=== PATIENT | female | born 1990 | race Caucasian/White ===

== ENCOUNTER 2020-11-11 10:49 | Outpatient (CLI) | payer BC, SELFPAY ==
[2020-11-11 11:05] VITALS: BP 144/94; PULSE 68; RESP 16; TEMP 36.9; O2SAT 98; BMI 43.5
[2020-11-11 12:00] VITALS: BP 130/78; PULSE 70; RESP 17; TEMP 36.6; O2SAT 98
[2020-11-11 13:00] VITALS: BP 119/87; PULSE 72; RESP 18; TEMP 36.2; O2SAT 97
[2020-11-11 13:01] VITALS: BP 119/87; PULSE 72; RESP 18; TEMP 36.2; O2SAT 97
--- NOTE | 2020-11-18 18:40 | PC.SOCIAL ---
65-3, 5894 antibody infusion follow up call: symptoms prior to infusion: exhaustion, chills, joint pain, loss of smell and taste Patient reports she is 100% better, still has slight nasal congestion and cough.
== END 2020-11-11 10:50 | disposition home or self-care (01) ==
LOC: OPS 10:55
PROVIDERS: PCP Family Medicine; Visit Provider Nurse Practitioner Family
DX: U07.1 COVID-19 (principal)
CPT/HCPCS: 96365

== ENCOUNTER → 2021-01-01 15:44 | Outpatient (BNVA) | payer BC, SELFPAY | PROVIDERS: PCP Family Medicine; Visit Provider Internal Medicine | DX: B18.2 Chronic viral hepatitis C (principal) | CPT/HCPCS: 80053; 82105; 87902 ==

== ENCOUNTER 2021-04-25 14:24 | Outpatient (CLI) | payer BC, SELFPAY ==
--- NOTE | 2021-04-25 14:33 | MR_ITS ---
WS: [id number] INDICATION: Viral hepatitis TECHNIQUE: MRI of the abdomen without and with gadolinium enhancement. Coronal single shot SSFP. Axia l single shot SSF, Axial T2, dual Echo, coronal 3-D T1, and post gadolinium images were obtained. FINDINGS: Mild diffuse fatty infiltration of the liver. Mild hepatomegaly with enlargement of the RIG HT hepatic lobe measuring 18.9 cm craniocaudal. No intrahepatic biliary ductal dilatation. Normal por nidia vein and splenic vein. Mild splenomegaly measuring 13.0 cm [id number]. Normal GE junction. No abdominal lymphadenopathy. No periaortic lymphadenopathy. No hepatic lesions. Normal gallbladder. Normal pancreatic head. Normal common bile duct. Normal pancreatic duct. Adrenal glands are normal. No hydronephrosis in either kidney. Normal renal parenchymal enhancement. Normal caliber abdominal aorta. MR/MR abdomen wo/w con* [id number] IMPRESSION: 1. Mild hepatomegaly with diffuse fatty infiltration. 2. No intrahepatic biliary ductal dilatation. 3. Mild splenomegaly measuring 13.0 cm [id number]-[id number]. 4. No suspicious hepatic lesions. 5. Pancreas is normal in appearance. 6. No other significant findings.
[2021-04-25] MEDS: gadobenate dimeglumine 20 mL vial IV (15:44)
== END 2021-04-25 14:25 | disposition home or self-care (01) ==
LOC: RAD 14:26
PROVIDERS: PCP Family Medicine; Visit Provider Internal Medicine
DX: B19.20 Unspecified viral hepatitis C without hepatic coma (principal); R77.2 Abnormality of alphafetoprotein; R16.2 Hepatomegaly with splenomegaly, not elsewhere classified; K76.0 Fatty (change of) liver, not elsewhere classified
CPT/HCPCS: 74183

== ENCOUNTER → 2021-12-15 11:15 | Outpatient (BNVA) | payer BC, SELFPAY | PROVIDERS: PCP Family Medicine; Visit Provider Internal Medicine | DX: B19.20 Unspecified viral hepatitis C without hepatic coma (principal) | CPT/HCPCS: 87522 ==

== ENCOUNTER → 2022-12-30 15:32 | Outpatient (BNVA) | payer BC, SELFPAY | PROVIDERS: PCP Family Medicine; Visit Provider Clinical Nurse Specialist Adult Health | DX: J06.9 Acute upper respiratory infection, unspecified (principal) | CPT/HCPCS: 87426 ==

== ENCOUNTER → 2023-08-22 16:28 | Outpatient (BNVA) | payer BC, SELFPAY | PROVIDERS: PCP Family Medicine; Visit Provider Family Medicine | DX: M54.50 Low back pain, unspecified (principal) | CPT/HCPCS: 81000 ==

== ENCOUNTER → 2023-08-24 16:11 | Outpatient (BNVA) | payer BC, SELFPAY | PROVIDERS: PCP Family Medicine; Visit Provider Family Medicine | DX: N39.0 Urinary tract infection, site not specified (principal) | CPT/HCPCS: 87086 ==

== ENCOUNTER → 2024-05-09 08:44 | Outpatient (BNVA) | payer BC, SELFPAY | PROVIDERS: PCP Family Medicine; Visit Provider Nurse Practitioner Women's Health | DX: Z32.01 Encounter for pregnancy test, result positive (principal); N91.2 Amenorrhea, unspecified | CPT/HCPCS: 81025; 84702; 86850; 86900 ==

== ENCOUNTER → 2024-05-10 14:18 | Outpatient (BNVA) | payer BC, SELFPAY | PROVIDERS: PCP Family Medicine; Visit Provider Nurse Practitioner Women's Health | DX: Z36.87 Encounter for antenatal screening for uncertain dates (principal); O26.851 Spotting complicating pregnancy, first trimester | CPT/HCPCS: 76817 ==

== ENCOUNTER 2024-05-12 09:24 | Emergency (ER) | payer BC, SELFPAY ==
[2024-05-12 09:49] VITALS: BP 120/85; PULSE 76; RESP 18; TEMP 36.8; O2SAT 98; BMI 33.9
[2024-05-12 10:09] LABS: Basophils # 0.1 10^3/uL (0.0-0.1); Basophils % 0.6 %; Eosinophils # 0.2 10^3/uL (0.0-0.8); Eosinophils % 2.6 %; Hematocrit 45.8 % (36-47); Lymphocytes # 2.4 10^3/uL (0.8-4.8); Lymphocytes % 27.6 %; Mean Corpuscular HGB Conc 33.4 g/dL (30-55); Mean Corpuscular Hemoglobin 30.7 pg (27-33); Mean Platelet Volume 10.3 fL (7.4-10.4); Monocytes # 0.4 10^3/uL (0.2-0.9); Monocytes % 4.1 %; Neutrophils # 5.69 10^3/uL (1.8-7.7); Neutrophils % 64.8 %; Nucleated Red Blood Cells % 0 %; Platelet Count 244 10^3/cmm (157-399); Red Blood Count 4.98 10^6/uL (3.85-5.65); Red Cell Distribution Width 12.1 % (12.1-15.1); White Blood Count 8.79 10^3/uL (3.29-11.43)
--- NOTE | 2024-05-12 12:40 | W.ED.FEMALGU ---
HPI - Female Genitourinary General: Chief complaint: Vaginal Bleeding Stated complaint: bleeding (6wks preg) Time Seen by Provider: 05/12/24 09:33 Source: patient Mode of arrival: ambulatory Limitations: no limitations History of Present Illness: Patient is a 33-year-old female here approximately 6 to 7 weeks for concerns of vaginal bleeding. Patient was seen at [facility] just a few days ago for confirmation. She did have a dating ultrasound as well. Results of this ultrasound are listed below: Single intrauterine gestation with estimated age of 6 weeks 5 days. No pole identified, likely due to early gestation She states at that time she was having some light pink spotting but yesterday evening she began having heavy bright red bleeding with clot passage as well as significant cramping. She states at time of arrival to the emergency department her bleeding and pain has improved. She states she has had the same pad on for 3 to 4 hours and still has not soaked through it. She feels like her cramping has improved. MD elicited complaint: vaginal bleeding Onset (ago): hour(s) Consistency: improved Vaginal discharge: none Vaginal bleeding: moderate, bright red and clots Exacerbating factors: none Relieving factors: none Associated symptoms: Reports no associated symptoms; Deny abdominal pain Treatment prior to arrival: none Patient : Yes Date of Last Menstrual Period: 02/28/24 Related Data Previous Rx's ?Medication ?Instructions ?Recorded albuterol sulfate 2.5 mg/3 mL 2.5 mg (3 mL) inhalation Q6H #90 mL 12/30/22 (0.083 %) solution for nebulization albuterol sulfate 90 mcg/actuation See Rx Instructions .Route 12/07/23 aerosol inhaler .COMPLEX #8.5 grams Allergies Allergy/AdvReac Type Severity Reaction Status Date / Time No Known Allergies Allergy Verified 05/12/24 09:56 Review of Systems Card: Denies: chest pain Resp: Denies: dyspnea GI: Denies: abdominal pain, vomiting or diarrhea : Reports: vaginal bleeding and pelvic pain; Denies: flank pain, difficulty voiding, dysuria, urinary frequency, urinary urgency or urinary hesitancy Musc: Denies: back pain Neuro: Denies: dizziness PFSH ED PFSH: Medical History Hepatitis C Distant IVDU. Cirrhosis is unlikely Family History Grandmother Cancer Mother Hypertension Grandfather Breast cancer Social History Smoking and tobacco/nicotine status: current every day tobacco/nicotine user (1/2 ppd daily) cigarettes Marital status: Single Number of children: 1 service: No Female Reproductive History: Date of last menstrual period: 02/28/24 Physical Exam Const: COMMON NORMALS: no acute distress, average body habitus, no limitations, healthy appearing, alert and well nourished GI: INSPECTION: Yes normal to inspection PALPATION: Yes Tenderness to palpation present (GI) (mild lower abdominal/pelvic discomfort), No Guarding due to palpation present (GI) and No Rigid due to palpation : COMMON NORMALS: Yes no CVA tenderness BLADDER/KIDNEY EXAM: Yes no CVA tenderness OTHER: deferred Back/Pelvis: COMMON NORMALS: no CVA tenderness Neuro: SENSORIUM/ORIENTATION: Yes alert Course Vital Signs: Vital signs: Vital Signs Temperature 98.3 F 05/12/24 09:49 Pulse Rate 76 05/12/24 09:49 Respiratory Rate 18 05/12/24 09:49 Blood Pressure 120/85 05/12/24 09:49 Pulse Oximetry 98 05/12/24 09:49 Oxygen Delivery Me thod Room Air 05/12/24 09:49 MDM - Female Medical Decision Making Patient's hCG on 05/09 was 2140. Today's hCG is 360. Given symptoms and her rapid hCG decline, this is consistent with a miscarriage. Bleeding and cramping are improving. Did discuss how this may wax and wane over the next few days/weeks. Recommend she follow-up with women's health next week. Did discuss signs and symptoms that should prompt her to return to the emergency department. Blood type is O+/does not require RhoGAM. I did not see any indication to repeat an ultrasound at this time. Medical Records I reviewed the patient's medical records. Lab Data I reviewed the patient's lab results. 05/12/24 10:02 Laboratory Results WBC 8.79 10^3/uL (3.29-11.43) 05/12/24 10:02 RBC 4.98 10^6/uL (3.85-5.65) 05/12/24 10:02 Hgb 15.30 g/dL (11.27-16.99) 05/12/24 10:02 Hct 45.8 % (36-47) 05/12/24 10:02 MCV 92.0 fl (85-98) 05/12/24 10:02 MCH 30.7 pg (27-33) 05/12/24 10:02 MCHC 33.4 g/dL (30-55) 05/12/24 10:02 RDW 12.1 % (12.1-15.1) 05/12/24 10:02 Plt Count 244 10^3/cmm (157-399) 05/12/24 10:02 MPV 10.3 fL (7.4-10.4) 05/12/24 10:02 Neut % (Auto) 64.8 % 05/12/24 10:02 Lymph % (Auto) 27.6 % 05/12/24 10:02 [place] % (Auto) 4.1 % 05/12/24 10:02 Eos % (Auto) 2.6 % 05/12/24 10:02 Baso % (Auto) 0.6 % 05/12/24 10:02 Neut # (Auto) 5.69 10^3/uL (1.8-7.7) 05/12/24 10:02 Lymph # (Auto) 2.4 10^3/uL (0.8-4.8) 05/12/24 10:02 [place] # (Auto) 0.4 10^3/uL (0.2-0.9) 05/12/24 10:02 Eos # (Auto) 0.2 10^3/uL (0.0-0.8) 05/12/24 10:02 Baso # (Auto) 0.1 10^3/uL (0.0-0.1) 05/12/24 10:02 Nucleated RBC % (auto) 0 % 05/12/24 10:02 Nucleated RBCs # 0.0 /100WBC 05/12/24 10:02 Ser , Semi-Qnt 360.10 mIU/mL 05/12/24 10:02 No radiology studies performed this visit Discharge Plan Discharge Patient Disposition: Home Clinical Impression: Miscarriage Condition: Stable Prescriptions: No Action albuterol sulfate 2.5 mg /3 mL (0.083 %) solution for nebulization 2.5 mg inhalation Q6H Qty: 90 11RF albuterol sulfate 90 mcg/actuation HFA aerosol inhaler See Rx Instructions .ROUTE .COMPLEX Qty: 8.5 11RF Dose Instruction: INHALE 2 PUFFS BY MOUTH FOUR TIMES DAILY Rx Instructions: INHALE 2 PUFFS BY MOUTH FOUR TIMES DAILY Discharge Orders: Discharge ED (Routine); Ordered 05/12/24 Ordered By: Piper Torres Referrals: Herb Barbosa MD [Primary Care Provider] - Patient Instructions: Miscarriage (ED) Activity Restrictions/Additional Instructions: As we discussed, your hCG declined from over 2100 to 360 at today's visit. This is consistent with a spontaneous miscarriage. Please follow-up with women's health next week as they will continue to trend hCG down. We discussed signs and symptoms that should prompt a return to the emergency department including severe vaginal bleeding (soaking a pad an hour for 3+ hours), large clots, significant pelvic pain, or any other concerns you may have. Print Language: Hungarian Coding Level of Care Code ED X Ray Service Technician for Leonardo Olvera
[2024-05-12] MEDS: acetaminophen 500 mg Tablet 1000 MG PO (12:50)
== END 2024-05-12 12:56 | disposition home or self-care (01) ==
PROVIDERS: Emergency Provider Physician Assistant; PCP Family Medicine
DX: O03.9 Complete or unspecified spontaneous abortion without complication (principal); F17.210 Nicotine dependence, cigarettes, uncomplicated
CPT/HCPCS: 36415; 84702; 85025; 99283; J9999

== ENCOUNTER 2024-05-24 10:25 | Emergency (ER) | payer BC, SELFPAY ==
[2024-05-24 10:28] VITALS: BP 139/77; PULSE 94; RESP 18; TEMP 36.3; O2SAT 100; BMI 32.3
--- NOTE | 2024-05-24 10:34 | XR_ITS ---
WS: [id number] Exam: XR chest 1V portable [id number] Date/Time of Exam: 05/24/2024 10:34 AM Reason For Exam: weakness Findings: The lungs are clear and fully expanded. Costophrenic angles are sharp. No infiltrates. Bronchovascular relief appears normal. Cardiac silhouette is unremarkable. Bony elements are intact. XR/XR chest 1V portable [id number] IMPRESSION: Unremarkable chest radiograph.
--- NOTE | 2024-05-24 10:35 | ECG_ITS ---
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 Measurements Intervals [place] Rate: 79 P: 48 AL: 121 QRS: 60 QRSD: 89 T: 46 QT: 385 QTc: 443 Interpretive Statements SINUS RHYTHM WITH SINUS ARRHYTHMIA No previous ECG available for comparison Electronically Signed On 05-24-2024 15:57:44 CDT by Keshawn Tatum M.D. [email or web address]
--- NOTE | 2024-05-24 10:43 | CT_ITS ---
WS: [id number] CT HEAD TECHNIQUE: Noncontrast CT of the head obtained from the skullbase to the vertex. CLINICAL INFORMATION: weakness COMPARISON: None. DLP: 1203.[address] scans at [facility] use at least one of these dose optimization techniques: automated exposure control; mA and/or kV adjustment per patient size (includes targeted exams where dose is matched to clinical indication); or iterative reconstruction. FINDINGS: No evidence of intracranial hemorrhage or mass effect. Ventricular system and basal cisterns are patent. No extra-axial fluid collections. No evidence of mass or mass effect. Normal rogel-white differentiation. Mild mucosal thickening in the paranasal sinuses. Partial opacification ethmoid air cells. Mastoid air cells well aerated. CT/CT head wo con* [id number] IMPRESSION: 1. No evidence of intracranial hemorrhage or mass effect. 2. No acute intracranial findings.
--- NOTE | 2024-05-24 10:44 | ED_ITS ---
HPI - Weakness 2 General: Chief complaint: Weakness Stated complaint: stroke like symptoms Time Seen by Provider: 05/24/24 10:40 Source: patient Mode of arrival: ambulatory Limitations: no limitations History of Present Illness: 33-year-old female states that she had d ental work done this morning roughly 2 hours ago states that afterwards she been having some intermittent numbness to her left arm she states she has had 6 episodes where she had felt some numbness in her left arm. States that since resolved currently she denies any other symptoms denies any weakness has had no slurred speech denies any headache denies chest pain. Associated symptoms: Denies chest pain, chills, fever(s), headache(s), nausea or vomiting Review of Systems 2 Const: Denies: fever(s), chills, body aches or change in appetite Eyes: Denies: blurry vision or eye discomfort ENMT: Denies: throat pain or dental pain Card: Denies: chest pain Resp: Denies: dyspnea GI: Denies: abdominal pain, nausea, vomiting or diarrhea Musc: Denies: neck pain or back pain Skin/Breast: Denies: rash Neuro: Reports: numbness in extremities; Denies: headache(s) PFSH ED 2 PFSH: Medical History Insomnia Stress Hepatitis C Distant IVDU. Cirrhosis is unlikely Family History Grandmother Cancer Mother Hypertension Grandfather Breast cancer Social History Smoking and tobacco/nicotine status: current every day tobacco/nicotine user (1/2 ppd daily) cigarettes Marital status: Single Number of children: 1 service: No Physical Exam 2 Const: COMMON NORMALS: no acute distress, patient oriented x3 and healthy appearing HENMT: COMMON NORMALS: normocephalic and atraumatic HEAD & SCALP: n ormocephalic and atraumatic Eye: COMMON NORMALS: Equal, round and reactive pupils present and EOMs intact bilaterally VISUAL AMAYA: No peripheral vision loss, No central vision loss, No left visual field cut, No right visual field cut, No bitemporal visual field cut, No binasal visual field cut and No visual field cut by quadrant PUPIL: Y es Equal, round and reactive pupils present Neck/C-Spine: COMMON NORMALS: full ROM and supple Chest: COMMONS NORMALS: normal inspection of the chest Resp: COMMON NORMALS: normal respiratory effort, No retractions, No use of accessory muscles and clear to auscultation bilaterally AUSCULTATION: clear to auscultation bilaterally Cardio: COMMON NORMALS: regular rate, regular rhythm and No murmurs present (Cardio) RATE: regular rate RHYTHM: regular rhythm Extremity: COMMON NORMALS: normal to inspection and full ROM Neuro: COMMON NORMALS: patient oriented x3, moves all extremities and no focal motor deficits CRANIAL NERVES: Yes CN normal except as noted SPEECH: s peech normal MOTOR EXAM: 5/5 motor strength present throughout Psych: COMMON NORMALS: mental status grossly normal, Normal thought process present and cooperative THOUGHT PROCESS: Normal thought process present Skin: COMMON NORMALS: no rashes or lesions noted and no wounds GENERAL SKIN EXAM: no rashes or lesions noted Course 2 Vital Signs: Vital signs: Vital Signs Temperature 97.4 F L 05/24/24 10:28 Pulse Rate 83 05/24/24 11:34 Respiratory Rate 14 05/24/24 11:34 Blood Pressure 108/83 05/24/24 11:34 Pulse Oximetry 98 05/24/24 11:34 Oxygen Delivery Me thod Room Air 05/24/24 10:28 MDM - Weakness Medical Decision Making Patient presents with paresthesias to her left arm that since resolved she is well-appearing here no signs of a stroke head CT blood works normal she stable for discharge follow-up PCP return if worsening. Medical Records I reviewed the patient's medical records. Lab Data I reviewed the patient's lab results. 05/24/24 10:51 05/24/24 10:51 Radiology Impressions Chest X-Ray 05/24/24 10:34 IMPRESSION: Unremarkable chest radiograph. Head CT 05/24/24 10:43 IMPRESSION: 1. No evidence of intracranial hemorrhage or mass effect. 2. No acute intracranial findings. Laboratory Results WBC 9.11 10^3/uL (3.29-11.43) 05/24/24 10:51 RBC 4.49 10^6/uL (3.85-5.65) 05/24/24 10:51 Hgb 13.90 g/dL (11.27-16.99) 05/24/24 10:51 Hct 40.9 % (36-47) 05/24/24 10:51 MCV 91.1 fl (85-98) 05/24/24 10:51 MCH 31.0 pg (27-33) 05/24/24 10:51 MCHC 34.0 g/dL (30-55) 05/24/24 10:51 RDW 12.7 % (12.1-15.1) 05/24/24 10:51 Plt Count 215 10^3/cmm (157-399) 05/24/24 10:51 MPV 10.4 fL (7.4-10.4) 05/24/24 10:51 Neut % (Auto) 68.8 % 05/24/24 10:51 Lymph % (Auto) 23.7 % 05/24/24 10:51 [place] % (Auto) 4.1 % 05/24/24 10:51 Eos % (Auto) 2.6 % 05/24/24 10:51 Baso % (Auto) 0.5 % 05/24/24 10:51 Neut # (Auto) 6.26 10^3/uL (1.8-7.7) 05/24/24 10:51 Lymph # (Auto) 2.2 10^3/uL (0.8-4.8) 05/24/24 10:51 [place] # (Auto) 0.4 10^3/uL (0.2-0.9) 05/24/24 10:51 Eos # (Auto) 0.2 10^3/uL (0.0-0.8) 05/24/24 10:51 Baso # (Auto) 0.1 10^3/uL (0.0-0.1) 05/24/24 10:51 Nucleated RBC % (auto) 0 % 05/24/24 10:51 Nucleated RBCs # 0.0 /100WBC 05/24/24 10:51 Sodium 138 mmol/L (136-145) 05/24/24 10:51 Potassium 3.3 mmol/L (3.5-5.1) L 05/24/24 10:51 Chloride 102 mmol/L (98-107) 05/24/24 10:51 Carbon Dioxide 24 mmol/L (22-29) 05/24/24 10:51 Anion Gap 15.3 (5-19) 05/24/24 10:51 BUN 7 mg/dL (6-20) 05/24/24 10:51 Creatinine 0.7 mg/dL (0.5-0.9) 05/24/24 10:51 GFR Calculation 96.4 mL/min (90-130) 05/24/24 10:51 Glucose 101 mg/dL (65-115) 05/24/24 10:51 Calculated Osmolality 284 mOsm/kg (285-295) L 05/24/24 10:51 Calcium 9.0 mg/dL (8.5-10.5) 05/24/24 10:51 Magnesium 1.7 mg/dL (1.7-2.3) 05/24/24 10:51 Total Bilirubin 0.5 mg/dL (0.15-1.2) 05/24/24 10:51 AST 17 U/L (0-32) 05/24/24 10:51 ALT 15 U/L (0-33) 05/24/24 10:51 Alkaline Phosphatase 84 U/L (35-105) 05/24/24 10:51 Total Protein 6.6 g/dL (6.6-8.7) 05/24/24 10:51 Albumin 4.1 g/dL (3.5-5.2) 05/24/24 10:51 Globulin 2.5 g/dL (1.3-4.6) 05/24/24 10:51 All radiology interpretation(s) finalized by discharge EKG Data EKG 1: I personally reviewed and interpreted this EKG as follows: EKG interpretation date: 05/24/24 EKG interpretation time: 11:04 Interpretation: nsr hr [address] elevation qrs 89qtc 420 Discharge Plan Discharge Patient Disposition: Home Clinical Impression: Paresthesia Condition: Stable Prescriptions: No Action albuterol sulfate 90 mcg/actuation HFA aerosol inhaler See Rx Instructions .ROUTE .COMPLEX Qty: 8.5 11RF Dose Instruction: INHALE 2 PUFFS BY MOUTH FOUR TIMES DAILY Rx Instructions: INHALE 2 PUFFS BY MOUTH FOUR TIMES DAILY Discharge Orders: Discharge ED (Routine); Ordered 05/24/24 Ordered By: Allie Fisher Referrals: Herb Barbosa MD [Primary Care Provider] - 4-7 days Discharge Diet: Advance as tolerated Discharge Activity: Resume usual activity Patient Instructions: Paresthesia (ED) Print Language: Panamanian Coding Level of Care Code ED Workforce Development Program Director for Leonardo Fwd Related Data Previous Rx's ?Medication ?Instructions ?Recorded albuterol sulfate 90 mcg/actuation See Rx Instructions .Route 12/07/23 aerosol inhaler .COMPLEX #8.5 grams Allergies Allergy/AdvReac Type Severity Reaction Status Date / Time No Known Allergies Allergy Verified 05/12/24 09:56 NIH stroke score NIHSS Level Of Consciousness - 1a: 0 Level Of Consciousness Questions - 1b: Both Correct Level Of Consciousness Commands - 1c: Both Correct Best Gaze - 2: Normal Visual Amaya - 3: No Visual Loss Facial Palsy - 4: Normal Motor Arm Right - 5: No Drift Motor Arm Left - 5: No Drift Motor Leg Right - 6: No Drift Motor Leg Left - 6: No Drift Limb Ataxia - 7: Absent Sensory - 8: Normal Best Language - 9: No Aphasia Dysarthia - 10: Normal Extinction And Inattention - 11: 0 Score Total Score: 0
[2024-05-24 11:10] LABS: Basophils # 0.1 10^3/uL (0.0-0.1); Basophils % 0.5 %; Eosinophils # 0.2 10^3/uL (0.0-0.8); Eosinophils % 2.6 %; Hematocrit 40.9 % (36-47); Lymphocytes # 2.2 10^3/uL (0.8-4.8); Lymphocytes % 23.7 %; Mean Corpuscular Volume 91.1 fl (85-98); Mean Platelet Volume 10.4 fL (7.4-10.4); Monocytes # 0.4 10^3/uL (0.2-0.9); Monocytes % 4.1 %; Neutrophils # 6.26 10^3/uL (1.8-7.7); Neutrophils % 68.8 %; Nucleated Red Blood Cells % 0 %; Platelet Count 215 10^3/cmm (157-399); Red Blood Count 4.49 10^6/uL (3.85-5.65); Red Cell Distribution Width 12.7 % (12.1-15.1); White Blood Count 9.11 10^3/uL (3.29-11.43)
[2024-05-24 11:30] LABS: Alanine Aminotransferase 15 U/L (0-33); Albumin Level 4.1 g/dL (3.5-5.2); Alkaline Phosphatase 84 U/L (35-105); Anion Gap 15.3 (5-19); Aspartate Amino Transferase 17 U/L (0-32); Blood Urea Nitrogen 7 mg/dL (6-20); Carbon Dioxide 24 mmol/L (22-29); Chloride 102 mmol/L (98-107); Creatinine Clr Calc Pharmacy 129.6889; Globulin 2.5 g/dL (1.3-4.6); Glomerular Filtration Rate 96.4 mL/min (90-130); Glucose 101 mg/dL (65-115); Magnesium 1.7 mg/dL (1.7-2.3); Osmolality Calculated 284 mOsm/kg (285-295); Potassium 3.3 mmol/L (3.5-5.1); Sodium 138 mmol/L (136-145); Total Bilirubin 0.5 mg/dL (0.15-1.2); Total Protein 6.6 g/dL (6.6-8.7)
[2024-05-24 11:34] VITALS: BP 108/83; PULSE 83; RESP 14; O2SAT 98
[2024-05-24 12:56] LABS: HCG Quantitative 1.47 mIU/mL
== END 2024-05-24 12:12 | disposition home or self-care (01) ==
PROVIDERS: Emergency Provider Emergency Medicine; PCP Family Medicine
DX: R20.2 Paresthesia of skin (principal); F17.210 Nicotine dependence, cigarettes, uncomplicated
CPT/HCPCS: 36415; 70450; 71045; 80053; 83735; 84702; 85025; 93005; 99285

== ENCOUNTER 2024-08-09 21:55 | Emergency (ER) | payer BC, SELFPAY ==
[2024-08-09 21:58] VITALS: BP 165/69; PULSE 119; RESP 22; TEMP 36.7; O2SAT 95; BMI 32.3
--- OUTSIDE RECORDS SUMMARY | 2024-08-09 21:59 | XMS_ITS | Clinical Summary ---
Author Organization [employer] Address [address] [facility] Attn: Epic Prelude ADT [place] [address] Care Team Providers Care Analysis Specialist Name Role Phone Herb Barbosa MD Primary Care Provider [phone] Allergies No known active allergies Medications phentermine (ADIPEX P) 37.5 mg tabletIndicatio ns:Obesity (BMI 35.0-39.9 without comorbidity) TAKE 1 TABLET BY MOUTH EVERY DAY BEFORE BREAKFAST 30 Tablet 1 8 Active sofosbuvir-velp atasvir (Epclusa) 400-100 mg Tablet Take 1 Tablet by mouth daily. Active Norethindrn A-E estradiol-Iron (Blisovi Fe .,) 1.5 mg-30 mcg (21)/75 mg (7) tablet Take 1 Tablet by mouth daily. Active albuterol sulfate (ProAir HFA) 90 mcg/Actuation inhaler Take 2 Puffs by inhalation every 4 hours as needed. 10 8 Active Active Problems Problem Noted Date Diagnosed Date Mild intermittent asthma 04/08/2017 Immunizations Immunization Administration Dates Next Due (M-M-R II/PRIORIX)(12 MO UP) MEASLES, MUMPS AND RUBELLA VIRUS VACCINE, 0.5 ML IM/SUBCUT 06/10/1995,01/22/1992 Dt Dtp Dtap Vaccine 06/10/1995, 2,02/16/1991,11/24,1990 HIB, Unspecified Formulation 04/22/1992, 02/16/1991,1990,09/21 Hepatitis A Vaccine 09/18/2008 Hepatitis B Vaccine 01/19/1996,08/18/1995,1995 IPV/OPV 06/10/1995, 3,1990,09/21 Meningococcal A Conjugate Vaccine IM 09/18/2008 Family History Medical History Relation Name Comments No Known Problems Brother No Known Problems Father Diabetes Maternal Grandfather Diabetes Maternal Grandmother No Known Problems Mother Breast Cancer Paternal Grandmother No Known Problems Sister Relation Name Status Comments Brother Father Maternal Grandfather Maternal Grandmother Mother Paternal Grandfather Paternal Grandmother Sister Social History Tobacco Use Types Packs/Day Years Used Date Smoking Tobacco: Every Day Cigarettes Smokeless Tobacco: Never Alcohol Use Standard Drinks/Week Comments Yes 0 (1 standard drink = 0.6 oz pur e alcohol) Comments No Sex and Gender Information Value Date Recorded Sex Assigned at Not on file 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 Gender Identity Not on file Sexual Orientation Not on file Last Filed Vital Signs Vital Sign Reading Time Taken Comments Blood Pressure 139/95 08/10/2021 10:00 PM CDT Pulse 91 05/10/2017 11:56 AM CDT Temperature 37.1 C (98.8 F) 08/10/2021 10:00 PM CDT Respiratory Rate 20 08/10/2021 10:00 PM CDT Oxygen Saturation 98% 08/10/2021 10:00 PM CDT Inhaled Oxygen Concentration - - Weight 121 kg (266 lb 12.8 oz) 08/10/2021 8:46 P M CDT Height 167.6 cm (5' 6 ) 08/10/2021 8:46 PM CDT Body Mass Index 43.06 08/10/2021 8:46 PM CDT Plan of Treatment Health Maintenance Due Date Last Done Comments DTAP/TDAP/TD VACCINES (6 - Tdap) 2001 06/10/1995, 01/22/1992, 02/16/1991, Additional history exists HPV/Cotest (21-29) 07/19/2011 CERVICAL CANCER SCREENING 2020 HPV/Cotest (30-65) 2020 PAP SMEAR 2020 INFLUENZA VACCINE (#1) 2023 HEPATITIS B VACCINES Completed 01/19/1996, 08/18/1995, 06/10/1995 HPV VACCINES Aged Out No longer eligi ble based on patient's age to complete this topic Insurance [facility] MEDICAID [place] Care Teams Analysis Specialist Relationship Specialty Start Date End Date Herb Barbosa MD [address] [place] [address] PCP - General Family Practice 08/10/21
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
--- OUTSIDE RECORDS SUMMARY | 2024-08-09 21:59 | XMS_ITS | Clinical Summary ---
Author Organization [facility] Address [address] [place] [address] Care Team Providers Care Respiratory Therapy Director Name Role Phone Unavailable Primary Care Provider Unavailabl e Allergies No known active allergies Medications PROAIR HFA 90 mcg/actuation inhaler Take 2 Puffs by inhalation every 4 hours as needed. 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 Gender Identity Not on file Sexual Orientation Not on file Last Filed Vital Signs Vital Sign Reading Time Taken Comments Blood Pressure 130/86 05/10/2017 11:56 AM CDT Pulse 91 05/10/2017 11:56 AM CDT Temperature 36.8 C (98.3 F) 05/10/2017 11:56 AM CDT Respiratory Rate - - Oxygen Saturation 96% 05/10/2017 11:56 AM CDT Inhaled Oxygen Concentration - - Weight 110.2 kg (243 lb) 05/10/2017 11:56 AM CDT Height 170.2 cm (5' 7 ) 05/10/2017 11:56 AM CDT Body Mass Index 38.06 05/10/2017 11:56 AM CDT Plan of Treatment Health Maintenance Due [...] patient's age to complete this topic Insurance Member Subscriber Plan / Payer (Ef fective 2013-Present) Name:Oralia Gonzales Relation to Subscriber:Self Name:Oralia Gonzales Payer ID:Not on file Type:[employer] Address: [address] [place] [id number] [id number]
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
[2024-08-09 23:03] VITALS: BP 143/87; PULSE 91; O2SAT 96
== END 2024-08-09 23:20 | disposition left against medical advice (07) ==
PROVIDERS: Emergency Provider Physician Assistant; PCP Family Medicine
DX: R60.0 Localized edema (principal); S00.83XA Contusion of other part of head, initial encounter; S06.0XAA Concussion with loss of consciousness status unknown, initial encounter; Z72.820 Sleep deprivation; Y04.2XXA Assault by strike against or bumped into by another person, initial encounter
CPT/HCPCS: 70450; 70486; 99285

== ENCOUNTER 2024-09-17 21:38 | Emergency (ER) | payer BC, SELFPAY ==
--- OUTSIDE RECORDS SUMMARY | 2024-09-17 21:44 | XMS_ITS | Clinical Summary ---
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 Gender Identity Not on file Sexual Orientation [...] 2001 06/10/1995, 01/22/1992, 02/16/1991, Additional history exists HPV VACCINES (1 - 3-dose series) 2005 HPV/Cotest (21-29) 07/19/2011 CERVICAL CANCER SCREENING 2020 HPV/Cotest (30-65) 2020 PAP SMEAR 2020 INFLUENZA VACCINE (#1) 2024 HEPATITIS B VACCINES Completed 01/19/1996, 08/18/1995, 06/10/[address] [address] Member Subscriber Plan / Payer (Ef fective 2013-Present) Name:Oralia Gonzales Relation to Subscriber:Self Name:Oralia Gonzales Payer ID:Not on file Type:[employer] Address: [address] [place] [address] [place]
--- OUTSIDE RECORDS SUMMARY | 2024-09-17 21:44 | XMS_ITS | Clinical Summary ---
Author Organization [facility] Address [address] 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 MEDICAID [place] Care Teams Munitions Worker Relationship Specialty Start Date End Date Herb Barbosa MD [address] [place] [id number] PCP - General Family Practice 08/10/21
[2024-09-17 21:50] VITALS: BP 143/94; PULSE 72; RESP 17; TEMP 36.5; O2SAT 97; BMI 33.1
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
[2024-09-18] MEDS: ceFAZolin 1,000 mg SDV 1000 MG IVP (00:48)
[2024-09-18] MEDS: water for injection-sterile 10 ML (00:48)
[2024-09-18 01:06] VITALS: BP 145/91; PULSE 74; RESP 17; O2SAT 97
== END 2024-09-18 01:09 | disposition home or self-care (01) ==
PROVIDERS: Emergency Provider Physician Assistant; PCP Family Medicine
DX: S51.011A Laceration without foreign body of right elbow, initial encounter (principal); S00.83XA Contusion of other part of head, initial encounter; V89.2XXA Person injured in unspecified motor-vehicle accident, traffic, initial encounter
CPT/HCPCS: 12032; 70450; 73090; 96374; 99285; J0690

== ENCOUNTER 2024-11-22 16:39 | Emergency (ER) | payer BC, SELFPAY ==
[2024-11-22 16:40] VITALS: BP 184/90; PULSE 88; RESP 14; TEMP 37.1; O2SAT 98; BMI 33.0
--- NOTE | 2024-11-22 17:28 | USR_ITS ---
PROCEDURE INFORMATION: Exam: US Abdomen, Limited; Right Upper Quadrant Exam date and time: 11/22/2024 5:55 PM Age: 34 years old Clinical indication: Abnormal findings; Abnormal lab test; Elevated liver enzymes; Additional info: Ruq pain, transaminitis TECHNIQUE: Imaging protocol: Real time ultrasound of the abdomen with image documentation. Limited exam focused on the right upper quadrant. COMPARISON: MR abdomen wo/w con* [id number] 04/25/2021 2:58 PM FINDINGS: Liver: Normal. No masses. Gallbladder: Normal. No gallstones. No pericholecystic fluid. No mention of positive Diaz's. Biliary ducts: Normal. No stones. No dilation. Pancreas: Visualized pancreas is unremarkable. Right kidney: Normal. No mass. No hydronephrosis. US/US abdomen limited [id number] IMPRESSION: No acute findings.
[2024-11-22 17:46] VITALS: BP 140/82
[2024-11-22 17:50] LABS: Glucose Urine UA Negative (Normal); Nitrate Urine Negative (Negative); Specific Gravity, Urine 1.009 (1.005-1.030)
[2024-11-22 18:12] LABS: Add Urine Microscopic? YES
[2024-11-22 18:26] LABS: Lipase 53 U/L (13-60)
--- NOTE | 2024-11-22 18:57 | W.ED.RECABL ---
HPI - Recheck/Abnormal Lab/Rx General: Chief Complaint: Recheck/Abnormal Lab/Rx Stated Complaint: zac sent liver labs high urgent Time Seen by Provider: 11/22/24 17:00 History of Present Illness: Patient is 34-year-old female that was seen at Dr. Barbosa's office today for retained tampon. Tampon had been in for 2 weeks. She had hepatomegaly, and transaminitis. Tampon was removed. Concern for pelvic pain associated with toxic socks syndrome was reason for referral to the ED. Recent history: Patient positive for hepatitis C in 2020 (genotype 1a), status post hepatitis C viral treatment, and seroconversion to negative in 2021. Important history: Patient has had increased alcohol intake, large volume of alcohol this past weekend, liquor/beer. Patient has had increased amount of drinking over the last few years, however certainly this last weekend was drinking a large amount of alcohol. This may have been the reason for retained tampon. Patient is unsure, and is quite embarrassed about her current situation. Related Data Previous Rx's ?Medication ?Instructions ?Recorded albuterol sulfate 90 mcg/actuation See Rx Instructions .Route 08/29/24 aerosol inhaler .COMPLEX #8.5 grams venlafaxine 75 mg capsule,extended 75 mg PO DAILY #30 caps 09/14/24 release 24 hr (Effexor XR) alprazolam 0.5 mg tablet 0.5 mg PO BID PRN anxiety #60 tabs 11/17/24 methylprednisolone 4 mg tablets in See Rx Instructions PO .COMPLEX 11/22/24 a dose pack (Medrol (Karel)) #21 ea Allergies Allergy/AdvReac Type Severity Reaction Status Date / Time No Known Allergies Allergy Verified 11/22/24 14:12 Review of Systems Const: Denies: fever(s) or chills Eyes: Reports: yellow eyes ENMT: Denies: epistaxis or post nasal drip Resp: Denies: dyspnea or non-productive cough GI: Reports: nausea; Denies: abdominal pain or vomiting : Reports: vaginal odor, vaginal bleeding, vaginal discharge and pelvic pain Musc: Denies: neck pain or back pain Skin/Breast: Denies: rash Neuro: Denies: headache(s) or numbness in extremities [facility] ED PFSH: Medical History (Updated 11/23/24 @ 00:53 by HALEY Arredondo) Insomnia Stress Hepatitis C Distant IVDU. Cirrhosis is unlikely Family History Grandmother Cancer Mother Hypertension Grandfather Breast cancer Social History Smoking and tobacco/nicotine status: current every day tobacco/nicotine user cigarettes Marital status: Single Number of children: 1 service: No Physical Exam Const: COMMON NORMALS: no acute distress, average body habitus and patient oriented x3 HENMT: COMMON NORMALS: normocephalic and atraumatic HEAD & SCALP: normocephalic and atraumatic Neck/C-Spine: COMMON NORMALS: full ROM, no lymphadenopathy, supple and no meningeal signs Lymph: LYMPHATIC: no lymphadenopathy noted Chest: COMMONS NORMALS: normal inspection of the chest and normal palpation of entire chest wall Resp: COMMON NORMALS: normal respiratory effort, No retractions and clear to auscultation bilaterally AUSCULTATION: clear to auscultation bilaterally Cardio: COMMON NORMALS: regular rate and regular rhythm RATE: regular rate RHYTHM: regular rhythm GI: COMMON NORMALS: Soft to palpation PALPATION: Yes Soft to palpation and Yes Hepatomegaly present (liver tip at umbilicus) : COMMON NORMALS: Yes no CVA tenderness BLADDER/KIDNEY EXAM: Yes no CVA tenderness Back/Pelvis: COMMON NORMALS: no CVA tenderness Extremity: COMMON NORMALS: normal to inspection, full ROM and capillary refill normal Neuro: COMMON NORMALS: patient oriented x3 MENINGEAL SIGNS: Yes no meningeal signs Psych: COMMON NORMALS: mental status grossly normal, Normal thought process present and cooperative THOUGHT PROCESS: Normal thought process present Course Vital Signs: Vital signs: Vital Signs Temperature 98.7 F 11/22/24 16:40 Pulse Rate 88 11/22/24 16:40 Respiratory Rate 14 11/22/24 16:40 Blood Pressure 140/82 11/22/24 17:46 Pulse Oximetry 98 11/22/24 16:40 Oxygen Delivery Me thod Room Air 11/22/24 16:40 MDM - Recheck/Abnormal Lab/Rx Medical Decision Making Patient is 34-year-old female presents to the ED with history of drinking large volume of alcohol lately. She reports to the emergency room with 2 weeks of retention of a tampon that was removed by primary care and transaminitis with concern of toxic shock syndrome. She has not had any peeling of her skin, or no concern of peeling. This would typically be the first concern of toxic shock syndrome although pelvic pain, and transaminitis could be related, it is most likely related to alcoholic hepatitis. She was previously treated for hepatitis C, and is seronegative on last evaluation in 2021. I have repeated an acute hepatitis panel that is pending, gonorrhea, and chlamydia. Her trichomonas/wet prep/Leticia screen is negative. Urine analysis is negative for acute pathology. This was all explained to patient. She will be treated as a autoimmune/alcoholic hepatitis with steroid shot x 1, and Medrol Dosepak, and close follow-up and monitoring of transaminitis, as well as ceasing all alcohol intake. Medical Records I reviewed the patient's medical records. Lab Data Radiology Impressions Abdomen Ultrasound 11/22/24 17:28 IMPRESSION: No acute findings. Laboratory Results Lipase 53 U/L (13-60) 11/22/24 17:44 Urine Color Dark yellow (Yellow) A 11/22/24 17:35 Urine Appearance Clear (CLEAR) 11/22/24 17:35 Urine pH 7.0 (5-7) 11/22/24 17:35 Ur Specific [place] 1.009 (1.005-1.030) 11/22/24 17:35 Urine Protein Negative (Negative) 11/22/24 17:35 Urine Glucose (UA) Negative (Normal) 11/22/24 17:35 Urine Ketones Negative (Negative) 11/22/24 17:35 Urine Blood 1+ (Negative) A 11/22/24 17:35 Urine Nitrate Negative (Negative) 11/22/24 17:35 Urine Bilirubin 2+ (Negative) H 11/22/24 17:35 Urine Urobilinogen 2.0 mg/dL (Negative) H 11/22/24 17:35 Ur Leukocyte Esterase Trace (Negative) A 11/22/24 17:35 Urine RBC 0-4 /hpf (0-2) H 11/22/24 17:35 Urine WBC 0-4 /hpf (0-5) H 11/22/24 17:35 Ur Squamous Epith Cells 0-4 /hpf (0-5) H 11/22/24 17:35 Calcium Oxalate Crystal 5-10 /hpf H 11/22/24 17:35 Amorphous Sediment Not Reportable 11/22/24 17:35 Urine Bacteria None /hpf (NONE) 11/22/24 17:35 Urine Mucus None /hpf 11/22/24 17:35 C. trachomatis (PCR) Not detected (Negative) 11/22/24 17:55 Hepatitis A IgM Ab Non-reactive (Nonreactive) 11/22/24 17:44 Hep Bs Antigen Non-reactive (Nonreactive) 11/22/24 17:44 Hep B Core IgM Ab Non-reactive (Nonreactive) 11/22/24 17:44 Hepatitis C Antibody Reactive (Nonreactive) H 11/22/24 17:44 N. gonorrhoeae (PCR) Not detected (Negative) 11/22/24 17:55 All radiology interpretation(s) finalized by discharge ED provider radiology interpretation(s): Hepatomegaly on ultrasound noted. Otherwise unremarkable. Discharge Plan Discharge Patient Disposition: Home Clinical Impression: Acute hepatitis, Hepatitis C Condition: Stable Prescriptions: New methylprednisolone [Medrol (Karel)] 4 mg tablets,dose pack See Rx Instructions .ROUTE .COMPLEX Qty: 21 0RF Rx Instructions: for 6 days No Action venlafaxine [Effexor XR] 75 mg capsule,extended release 24hr 75 mg PO DAILY Qty: 30 11RF albuterol sulfate 90 mcg/actuation HFA aerosol inhaler See Rx Instructions .ROUTE .COMPLEX Qty: 8.5 11RF Dose Instruction: INHALE 2 PUFFS BY MOUTH FOUR TIMES DAILY Rx Instructions: INHALE 2 PUFFS BY MOUTH FOUR TIMES DAILY alprazolam 0.5 mg tablet 0.5 mg PO BID PRN (Reason: anxiety) Qty: 60 2RF Discharge Orders: Discharge ED (Routine); Ordered 11/22/24 Ordered By: Gabby Gandhi Referrals: Herb Barbosa MD [Primary Care Provider, Family Practice] Discharge Diet: Low Salt Discharge Activity: Resume usual activity Patient Instructions: Alcoholic Hepatitis (ED), Patient Portal & Alicja Instructions Activity Restrictions/Additional Instructions: - Your hepatitis panel is pending, as well as your gonorrhea/chlamydia. I do suspect these will all be negative. I will call you if it is a different - You did receive dexamethasone here, and Medrol Dosepak. - You will need to call tomorrow to schedule a follow-up appoint with Dr. Barbosa for Wednesday and/or next week to follow your labs. It is crucial to follow your liver function test at this time. - Increase your water intake as we discussed. - We did not find any obstruction in your liver or common bile duct. We did find that your liver was too big?18 cm. - Do not take in any Tylenol/acetaminophen, or anything toxic to the liver. No more drinking alcohol. - Stop your venlafaxine - Return to ED if you have worsening darkening of your urine, worsening yellowing of your eyes, fever greater than 100.4 ?F Print Language: Moldovan Coding Level of Care Code ED Supervisor Phosphoric Acid for Leonardo Olvera
[2024-11-22 20:38] LABS: Neisseria Gonorrhea NOT DETECTED (Negative)
[2024-11-22 21:43] LABS: Hepatitis B Surface Antigen Non-Reactive (Nonreactive)
[2024-11-22 22:06] LABS: Hepatitis A Antibody IgM Non-Reactive (Nonreactive)
[2024-11-24 17:03] LABS: HEP C RNA Viral Load Quant 401000 IU/mL (NOT DETECTED); HEP C RNA Viral Load Quant 5.60 Log IU/mL (NOT DETECTED)
== END 2024-11-22 19:52 | disposition home or self-care (01) ==
PROVIDERS: Emergency Provider Physician Assistant; PCP Family Medicine
DX: B17.10 Acute hepatitis C without hepatic coma (principal); F17.210 Nicotine dependence, cigarettes, uncomplicated
CPT/HCPCS: 36415; 76705; 80053; 80074; 81001; 83690; 85025; 87210; 87491; 87522; 87591; 96372; 99284; J1100